=== PATIENT | female | born 1990 | race Caucasian/White ===

== ENCOUNTER 2016-07-11 10:27 | Emergency (ER) | payer OTHER ==
[~2016-07-11] VITALS: Ht 162.6 cm; Wt 75.5 kg
[2016-07-11 15:15] LABS: UA SPECIFIC GRAVITY 1.015 (1.005-1.035); microscopic required? YES; urine erythrocyte TRACE (NEGATIVE)
[2016-07-11 15:30] VITALS: BP 109/69
== END 2016-07-11 15:42 | disposition home or self-care (01) ==
LOC: ED 10:27
PROVIDERS: Emergency Medicine
DX: R07.89 Other chest pain (principal); R10.32 Left lower quadrant pain
CPT/HCPCS: J1885